=== PATIENT | female | born 1980 | race Caucasian/White ===

== ENCOUNTER 2016-09-18 08:59 | Emergency (ER) | payer MEDICAID ==
[2016-09-18] MEDS ORDERED: Sulfamethoxazole/TMP 800/160mg Tab PO ONE (09:10)
[2016-09-18] MEDS ORDERED: Sulfamethoxazole/TMP 800/160mg Tab ONE (09:22)
--- NOTE | 2016-09-22 17:39 | ED Physician Chart ---
Skin/Abscess/FB HPI - General Chief complaint: Skin Rash/Abscess Stated complaint: BUMP ON THE RIGHT THIGH - Related Data Previous Rx's Medication Instructions Recorded Azithromycin [Zithromax] 250 mg PO DAILY #1 tab 09/18/16 Sulfamethoxazole/TMP [Bactrim DS] 1 tab PO BID #1 tab 09/18/16 Allergies Allergy/AdvReac Type Severity Reaction Status Date / Time No Known Allergies Allergy Verified 09/28/15 22:55 Family Medical History - Family Member Mother History Unknown: Yes Ethnicity: Living Status: Still Living Hx Family Cancer: No Hx Family Coronary Artery Disease: No Hx Family Congestive Heart Failure: No Hx Family Hypertension: No Hx Family Stroke: No Hx Family Diabetes: No Hx Family Seizures: No Hx Family Dementia: No Hx Family AIDS: No Hx Family HIV: No Hx Family COPD: No Hx Family Hepatitis: No Hx Family Psychiatric Problems: No Hx Family Tuberculosis: No Father Ethnicity: Living Status: Still Living Hx Family Cancer: No Hx Family Coronary Artery Disease: No Hx Family Congestive Heart Failure: No Hx Family Hypertension: No Hx Family Stroke: No Hx Family Diabetes: No Hx Family Seizures: No Hx Family Dementia: No Hx Family AIDS: No Hx Family HIV: No Hx Family COPD: No Hx Family Hepatitis: No Hx Family Psychiatric Problems: No Hx Family Tuberculosis: No Grandmother History Unknown: Yes Living Status: Hx Family Diabetes: Yes Course Vital Signs Temp 98.5 F 09/18/16 09:10 HR 100 09/18/16 09:10 RR 16 09/18/16 09:10 BP 138/89 09/18/16 09:10 O2 Sat % 100 09/18/16 09:10 Temp 98.0 F 09/18/16 09:58 HR 89 09/18/16 09:58 RR 16 09/18/16 09:58 BP 121/77 09/18/16 09:58 O2 Sat % 99 09/18/16 09:58 Disposition Disposition: PT DISCHARGED HOME Condition: Stable Instructions: MRSA Overview Prescriptions: Azithromycin [Zithromax] 250 mg PO DAILY #1 tab Sulfamethoxazole/TMP [Bactrim DS] 1 tab PO BID #1 tab Referrals: Adam Dowling [Active] - 1-3 Days ED Discharge Plan - Patient Disposition Admit/Discharge/Transfer: PT DISCHARGED HOME Condition at Disposition: Stable Prescriptions: Azithromycin [Zithromax] 250 mg PO DAILY #1 tab Sulfamethoxazole/TMP [Bactrim DS] 1 tab PO BID #1 tab Instructions: MRSA Overview Accepting Physician: Adam Dowling [Active] - 1-3 Days
== END 2016-09-18 10:15 | disposition home or self-care (01) ==
LOC: ER 08:59
DX: N39.0 Urinary tract infection, site not specified (principal); R21 Rash and other nonspecific skin eruption; Z88.1 Allergy status to other antibiotic agents
CPT/HCPCS: 99283; 96372; 87070; J0696; Z7502

== ENCOUNTER 2016-10-20 12:13 | Emergency (ER) | payer MEDICAID ==
--- NOTE | 2016-10-20 13:34 | ED Physician Chart ---
Chief Complaint/HPI - Patient Information Date Seen:: 10/20/16 Time Seen:: 12:30 Chief Complaint:: WOUND CHECK History of Present Illness:: THIS IS A 35 YO FEMALE WHO IS HERE FOR A WOUND CHECK THAT IS ON HER RIGHT THIGH. SHE THINKS THAT IT IS HEALING AND MUCH BETTER THAN WHEN SHE CAME HERE BEFORE. Allergies:: Allergies Allergy/AdvReac Type Severity Reaction Status Date / Time No Known Allergies Allergy Verified 09/28/15 22:55 Vitals:: Vital Signs - 8 hr 10/20/16 10/20/16 12:19 12:37 Temp 98.4 F 98.4 F HR 74 74 RR 16 16 BP 126/74 126/78 O2 Sat % 98 98 Historian:: Patient Review:: Nurse's Note Reviewed Review of Systems - Review of Systems General/Constitutional: No fever, No chills, No weight loss, No weakness, No diaphoresis, No edema, No loss of appetite Skin: Skin lesions (CHECK ON MRSA INFECTION), No rash, No bruising Head: No headache, No light-headedness Eyes: No loss of vision, No pain, No diplopia ENT: No earache, No nasal drainage, No sore throat, No tinnitus Neck: No neck pain, No swelling, No thyromegaly, No stiffness, No mass noted Cardio Vascular: No chest pain, No palpitations, No PND, No orthopnea, No edema Pulmonary: No SOB, No cough, No sputum, No wheezing GI: No nausea, No vomiting, No diarrhea, No pain, No melena, No hematochezia, No constipation, No hematemesis G/U: No dysuria, No frequency, No hematuria Musculoskeletal: No bone or joint pain, No back pain, No muscle pain Endocrine: No polyuria, No polydipsia Psychiatric: No prior psych history, No depression, No anxiety, No suicidal ideation Hematopoietic: No bruising, No lymphadenopathy Allergic/Immuno: No urticaria, No angioedema Neurological: No syncope, No focal symptoms, No weakness, No paresthesia, No headache, No seizure, No dizziness, No confusion, No vertigo Past Medical History - Past Medical History Obtainable: Yes Past Medical History: No significant medical hx Family History: None Social History: Non Smoker, No Alcohol, No Drug Use Surgical History: None Psychiatricy History: None Medication: Reviewed Family Medical History - Family Member Mother History Unknown: Yes Ethnicity: Living Status: Still Living Hx Family Cancer: No Hx Family Coronary Artery Disease: No Hx Family Congestive Heart Failure: No Hx Family Hypertension: No Hx Family Stroke: No Hx Family Diabetes: No Hx Family Seizures: No Hx Family Dementia: No Hx Family AIDS: No Hx Family HIV: No Hx Family COPD: No Hx Family Hepatitis: No Hx Family Psychiatric Problems: No Hx Family Tuberculosis: No Father Ethnicity: Living Status: Still Living Hx Family Cancer: No Hx Family Coronary Artery Disease: No Hx Family Congestive Heart Failure: No Hx Family Hypertension: No Hx Family Stroke: No Hx Family Diabetes: No Hx Family Seizures: No Hx Family Dementia: No Hx Family AIDS: No Hx Family HIV: No Hx Family COPD: No Hx Family Hepatitis: No Hx Family Psychiatric Problems: No Hx Family Tuberculosis: No Grandmother History Unknown: Yes Ethnicity: Living Status: Hx Family Hypertension: No Hx Family Stroke: No Hx Family Diabetes: No Hx Family Dementia: No Hx Family AIDS: No Hx Family HIV: No Hx Family Hepatitis: No Physical Exam - Physical Examination General/Constitutional: Awake, Well-developed, well-nourished, Alert, No distress, GCS 15, Non-toxic appearing, Ambulatory Head: Atraumatic Eyes: Lids, conjuctiva normal, PERRL, EOMI Skin: Nl inspection, No rash, No ecchymosis, Well hydrated, No lymphadenopathy Other Skin comments:: THE RIGHT THIGH WOUND IS HEALING NICELY. ENMT: External ears, nose nl, Nasal exam nl, Lips, teeth, gums nl Neck: Nontender, Full ROM w/o pain, No JVD, No nuchal rigidity, No bruit, No mass, No stridor Respiratory: Nl effort/Exclusion, Clear to Auscultation, No Wheeze/Rhonchi/Rales Cardio Vascular: RRR, No murmur, gallop, rubs, NL S1 S2 GI: No tenderness/rebounding/guarding, No organomegaly, No hernia, Normal BS's, Nondistended, No mass/bruits, No McBurney tenderness : No CVA tenderness Extremities: No tenderness or effusion, Full ROM, normal strength in all extremities, No edema, Normal digits & nails Neuro/Psych: Alert/oriented, DTR's symmetric, Normal sensory exam, Normal motor strength, Judgement/insight normal, Mood normal, Normal gait, No focal deficits Misc: normal gait, Normal back, No paraspinal tenderness Assessment - Assessment General Assessment: HEALING WOUND INFECTION ED Septic Shock - . Is Septic Shock (SBP<90, OR Lactate>4 mmol\L) present?: No - <6hrs of presentation: Vital Signs: Vital Signs - 8 hr 10/20/16 10/20/16 12:19 12:37 Temp 98.4 F 98.4 F HR 74 74 RR 16 16 BP 126/74 126/78 O2 Sat % 98 98 Reassessment (Disposition) - Reassessment Reassessment Condition:: Improved - Diagnosis Diagnosis:: HEALING WOUND INFECTION - Aftercare/Follow up Instructions Aftercare/Follow-Up Instructions:: Counseled pt regarding lab results/diagnosis & need follow up, Refer to Discharge Instructions, Counseled pt & family regarding lab results/diagnosis & need follow up - Patient Disposition Discharge/Transfer:: Home Condition at Disposition:: Improved ED Discharge Plan - Patient Disposition Admit/Discharge/Transfer: PT DISCHARGED HOME Condition at Disposition: Improved Instructions: Community-Associated MRSA, Wound Infection, [id number]
== END 2016-10-20 12:50 | disposition home or self-care (01) ==
LOC: ER 12:13
DX: L02.415 Cutaneous abscess of right lower limb (principal)
CPT/HCPCS: Z7502

== ENCOUNTER 2017-04-26 19:30 | Emergency (ER) | payer MEDICAID ==
--- NOTE | 2017-04-26 20:38 | ED Physician Chart ---
ED Chief Complaint/HPI - Patient Information Date Seen:: 04/26/17 Time Seen:: 20:20 Chief Complaint:: head trauma History of Present Illness:: Sometime after 6 PM the patient was struck by a batted hardball on the back of her head. The ball was hit by a member of a baseball team who apparently in his 20s. No loss of consciousness. Patient complains of occipital pain, mandibular pain, pain in her temples, and mild neck pain with rotation of her neck. She also feels dizzy but was able to drive here. Allergies:: Allergies Allergy/AdvReac Type Severity Reaction Status Date / Time No Known Allergies Allergy Verified 04/26/17 19:41 Vitals:: Vital Signs - 8 hr 04/26/17 19:36 Temp 97.9 F HR 80 RR 16 BP 140/76 O2 Sat % 99 Historian:: Patient Review:: Nurse's Note Reviewed ED Review of Systems - Review of Systems General/Constitutional: No fever, No chills Skin: No skin lesions Head: Headache Eyes: No loss of vision ENT: No earache Neck: Neck pain Cardio Vascular: No chest pain Pulmonary: No SOB, No cough GI: No nausea, No vomiting, No diarrhea G/U: No dysuria, No frequency, No hematuria Musculoskeletal: No muscle pain Endocrine: No polyuria Psychiatric: No prior psych history Hematopoietic: No bruising Allergic/Immuno: No urticaria Neurological: No syncope, No focal symptoms, No weakness ED Past Medical History - Past Medical History Past Medical History: No significant medical hx Family History: None Social History: Non Smoker, No Alcohol Surgical History: , Hernia Psychiatricy History: None Medication: None Family Medical History - Family Member Mother History Unknown: Yes Ethnicity: Living Status: Still Living Hx Family Cancer: No Hx Family Coronary Artery Disease: No Hx Family Congestive Heart Failure: No Hx Family Hypertension: No Hx Family Stroke: No Hx Family Diabetes: No Hx Family Seizures: No Hx Family Dementia: No Hx Family AIDS: No Hx Family HIV: No Hx Family COPD: No Hx Family Hepatitis: No Hx Family Psychiatric Problems: No Hx Family Tuberculosis: No Father Ethnicity: Living Status: Still Living Hx Family Cancer: No Hx Family Coronary Artery Disease: No Hx Family Congestive Heart Failure: No Hx Family Hypertension: No Hx Family Stroke: No Hx Family Diabetes: No Hx Family Seizures: No Hx Family Dementia: No Hx Family AIDS: No Hx Family HIV: No Hx Family COPD: No Hx Family Hepatitis: No Hx Family Psychiatric Problems: No Hx Family Tuberculosis: No Grandmother History Unknown: Yes Ethnicity: Living Status: Hx Family Hypertension: No Hx Family Stroke: No Hx Family Diabetes: No Hx Family Dementia: No Hx Family AIDS: No Hx Family HIV: No Hx Family Hepatitis: No ED Physical Exam - Physical Examination General/Constitutional: Awake, Well-developed, well-nourished, Alert, No distress, GCS 15, Non-toxic appearing, Ambulatory Head: Atraumatic Eyes: Lids, conjuctiva normal, PERRL, EOMI Other Eyes comments:: Optic discs are sharp. Skin: Nl inspection, No rash ENMT: External ears, nose nl Other ENMT comments:: Right ceruminosis; left tympanic membrane clear Neck: No JVD Other Neck comments:: Range of motion of the neck: 80 forward flexion; 80 degrees extension; 70 degrees right and 20 left rotation; 30 lateral flexion Respiratory: Nl effort/Exclusion, Clear to Auscultation, No Wheeze/Rhonchi/Rales Cardio Vascular: RRR, No murmur, gallop, rubs, NL S1 S2 GI: No tenderness/rebounding/guarding, No organomegaly : No CVA tenderness Extremities: No edema, Normal digits & nails Neuro/Psych: Alert/oriented, Judgement/insight normal, Mood normal, No focal deficits Other Neuro/Psych comments:: Finger to nose testing intact Misc: Normal back ED Assessment - Assessment General Assessment: Patient has a cerebral concussion but the chance that that a CAT scan of the head would show a lesion requiring surgery is extremely slight. If symptoms of a concussion persist the best test as an MRI which could be done in several days or even longer. ED Septic Shock - . Is Septic Shock (SBP<90, OR Lactate>4 mmol\L) present?: No - <6hrs of presentation: Vital Signs: Vital Signs - 8 hr 04/26/17 19:36 Temp 97.9 F HR 80 RR 16 BP 140/76 O2 Sat % 99 ED Reassessment (Disposition) - Reassessment Reassessment Condition:: Unchanged - Diagnosis Diagnosis:: Cerebral concussion - Aftercare/Follow up Instructions Aftercare/Follow-Up Instructions:: Refer to Discharge Instructions - Patient Disposition Discharge/Transfer:: Home Condition at Disposition:: Stable, Unchanged
== END 2017-04-26 20:40 | disposition home or self-care (01) ==
LOC: ER 19:30
DX: S06.0X9A Concussion with loss of consciousness of unspecified duration, initial encounter (principal); W21.03XA Struck by baseball, initial encounter; Y93.89 Activity, other specified; Y92.89 Other specified places as the place of occurrence of the external cause; Y99.8 Other external cause status